=== PATIENT | female | born 1960 | race Two or more races ===

== ENCOUNTER 2016-06-07 06:09 | Day surgery (SDC) | payer OTHER ==
[~2016-06-07] VITALS: Ht 165.1 cm; Wt 67.1 kg
[2016-06-07 07:00] VITALS: BP 95/54; PULSE 55; RESP 12
[2016-06-07 07:19] VITALS: Ht 165.1 cm; Wt 67.1 kg
[2016-06-07] MEDS ORDERED: no home meds (07:30)
[2016-06-07] MEDS ORDERED: MIDAZOLAM 1 MG/ML 2 ML INJ ONE (08:42)
[2016-06-07] MEDS ORDERED: FENTAnyl 50 MCG/ML VIAL ONE (08:42)
[2016-06-07 08:55] VITALS: BP 99/57; RESP 22
--- NOTE | 2016-06-07 14:36 | GILP ---
DATE OF PROCEDURE: 06/07/2016 NAME OF PROCEDURES: Colonoscopy and biopsy. SURGEON: Mary Olsen MD PREOPERATIVE DIAGNOSIS: Screening colonoscopy. POSTOPERATIVE DIAGNOSES 1. Colonoscopy all the way to the cecum. 2. Mild melanosis coli. 3. Multiple colon polyps were removed using the biopsy forceps. 4. Internal hemorrhoids. INDICATION FOR THE PROCEDURE: Ms. Alia Mcleod is a 56-year-old female patient who was scheduled f or screening colonoscopy. The procedure and possible complications were well explained to the patient. The patient understood and consented to the procedure. DESCRIPTION OF PROCEDURE: Under the influence of fentanyl and Versed, the colonoscope was carefully introduced in the rectum and under direct vision, it was advanced all the way to the cecum. FINDINGS: The patient had multiple small colon polyps and they were removed using the biopsy forcep s. The patient was noted to have mild melanosis coli and internal hemorrhoids. She tolerated the procedure very well and there was no complication from the procedure. At the end of the procedure, she was awake with stable vital signs and she was discharged home to the care of h er family. IMPRESSION: 1. Colonoscopy all the way to the cecum. 2. Mild melanosis coli. 3. Multiple small colon polyps were removed using the biopsy forceps. 4. Internal hemorrhoids. PLAN: 1. Await histopathology report. 2. Next screening colonoscopy in 3 years. Dictated By: MARY DEWEY/NELIDA Conf#: [id number] DID#: [id number] CC: MARY OLSEN MD;*EndCC*
== END 2016-06-07 12:26 | disposition home or self-care (01) ==
LOC: GIL 06:09
PROVIDERS: ATTEND Internal Medicine Gastroenterology
DX: R19.4 Change in bowel habit (principal); K64.4 Residual hemorrhoidal skin tags; K64.8 Other hemorrhoids; K63.5 Polyp of colon
CPT/HCPCS: 45380; 88305; J2250; J3010; Z7610

== ENCOUNTER 2018-08-18 05:57 | Day surgery (SDC) | payer OTHER ==
[~2018-08-18] VITALS: Ht 165.1 cm; Wt 68.2 kg
[~2018-08-18 05:57] MED LIST: no home meds
[2018-08-18 07:40] VITALS: Ht 165.1 cm; Wt 68.2 kg
[2018-08-18 07:42] VITALS: BP 109/56; PULSE 58; RESP 10
[2018-08-18] MEDS ORDERED: VITAMINS (07:46)
[2018-08-18] MEDS ORDERED: FENTAnyl 50 MCG/ML VIAL ONE (08:57)
[2018-08-18] MEDS ORDERED: MIDAZOLAM 1 MG/ML 2 ML INJ ONE ×2 (08:57)
[2018-08-18 09:15] VITALS: BP 96/60; PULSE 60; RESP 14
== END 2018-08-18 11:49 | disposition home or self-care (01) ==
LOC: GIL 05:57
PROVIDERS: ATTEND Internal Medicine Gastroenterology
DX: R19.4 Change in bowel habit (principal); D12.5 Benign neoplasm of sigmoid colon; K64.8 Other hemorrhoids
CPT/HCPCS: 45380; J2250; J3010; Z7610; 88305